=== PATIENT | female | born 1995 | race Caucasian/White ===

== ENCOUNTER 2024-08-04 08:39 | Outpatient (REF) | payer OTHER, SELFPAY ==
--- NOTE | ~2024-08-04 | US_ITS ---
EXAMINATION: US THYROID CLINICAL INFORMATION: Goiter, prior study at outside facility approximately 7 years ago is not available. COMPARISON: None available. TECHNIQUE: Linear transducer grayscale and color Doppler examination with attention to the region of the thyroid. FINDINGS: SIZE: Measurements of the thyroid lobes and nodules are given in sagittal, anteroposterior and transverse dimensions respectively. Right Thyroid Lobe: 4.2 x 2.1 x 2.1 cm, volume 10.0 mL. Parenchyma: The gland echotexture is heterogeneous. Thyroid vascularity is normal. Left Thyroid Lobe: 5.0 x 2.1 x 2.2 cm, volume 11.1 mL. Parenchyma: The gland echotexture is heterogeneous. Thyroid vascularity is normal. Isthmus: 0.8 cm in maximum AP dimension. Estimated total number of nodules greater than or equal to 1 cm: 1. Transportation Superintendent nodules are described as follows: 1. Location: Right upper. Size: 0.9 x 0.9 x 0.9 cm, volume 0.5 mL. Nodule characteristics: Composition: Solid (2). Echogenicity: Hyperechoic (1). Shape: Not taller than wide (0). Margins: Smooth (0). Echogenic Foci: None (0). ACR TI-RADS total points: 3. ACR TI-RADS category: 3. 2. Location: Left upper. Size: 1.1 x 1.0 x 1.1 cm, volume 0.6 mL. Nodule characteristics: Composition: Solid (2). Echogenicity: Hypoechoic (2). Shape: Not taller than wide (0). Margins: Smooth (0). Echogenic Foci: None (0). ACR TI-RADS total points: 4. ACR TI-RADS category: 4. NODES: No lymphadenopathy is seen in the tissue surrounding the thyroid gland. US/US thyroid IMPRESSION: 1. Diffusely heterogeneous thyroid gland. 2. Bilateral thyroid nodules, largest left 1.1 cm. Fine-needle aspiration recommended if more than or equal to 1.5 cm in maximum dimension. This study was presented today 08/04/2024 for interpretation. Stat results provided at this time as requested by referring provider. ACR TI-RADS RECOMMENDATION REFERENCE: Ultrasound-guided fine-needle aspiration, followup ultrasound, no further follow up. * TR1 (0 point) and TR2 (2 points): No FNA or follow up. * TR3 (3 points): FNA if more than or equal to 2.5 cm in maximum dimension, followup ultrasound in 1, 3 and 5 years if 1.5 to 2.4 cm in maximum dimension. * TR4 (4-6 points): FNA if more than or equal to 1.5 cm in maximum dimension, followup ultrasound in 1, 2, 3 and 5 years if 1 to 1.4 cm in maximum dimension. * TR5 (more than or equal to 7 points): FNA if more than or equal to 1 cm in maximum dimension, followup ultrasound every year for 5 years if 0.5 to 0.9 cm in maximum dimension. * TR3, TR4 or TR5 nodules that are below the size threshold for followup receive no follow up. Electronically signed by: Janet Cantor MD 08/04/2024 12:28 PM [facility]
== END 2024-08-04 08:40 | disposition home or self-care (01) ==
LOC: HO.UMASIMG 08:39
PROVIDERS: Visit Provider Family Medicine
DX: E04.2 Nontoxic multinodular goiter (principal); E03.9 Hypothyroidism, unspecified
CPT/HCPCS: 76536

== ENCOUNTER 2025-07-15 06:28 | Outpatient (REF) | payer OTHER, SELFPAY ==
--- NOTE | ~2025-07-15 | US_ITS ---
EXAMINATION: US THYROID HISTORY: NONTOXIC MULTINODULAR GOITER TECHNIQUE: Real-time grayscale ultrasound imaging was performed and images were reviewed. COMPARISON: Comparison is made with the prior examination dated 08/04/2024. FINDINGS: SIZE: The right thyroid lobe measures 4.6 x 1.8 x 2.0 cm. The left thyroid lobe measures 4.3 x 1.9 x 1.8 cm. The isthmus measures 8 mm. FLOW: Flow to the gland is normal. ECHOGENICITY: The echotexture of the gland is heterogeneous. NODULES: The previously seen left sided nodule is not identified on today's examination. Again seen is a right-sided nodule as described below: Nodule #: 1 Location: Right mid to upper pole measuring 11 x 10 x 10 mm (previously 9 x 9 x 9 mm). Shape: Wider than tall (0 points) Margins: Smooth (0 points) Echotexture: Hyperechoic (1 point) Composition: Solid (2 points) Calcifications: None (0 points) Total points: 3 TIRADS: TR3: Mildly suspicious. US/US thyroid IMPRESSION: Stable right-sided nodule as described above. According to ACR TI-RADS guidelines below, no follow-up or biopsy is warranted. ACR TI-RADS Guidelines TR1 (0 points): Benign. No follow-up or biopsy required TR2 (2 points): Not Suspicious. No biopsy or follow up indicated TR3 (3 points): Mildly Suspicious. FNA if >= 2.5 cm, Follow if >= 1.5 cm TR4 (4-6 points): Moderately Suspicious. FNA if >= 1.5 cm, Follow if >= 1.0 cm TR5 (>=7 points): Highly Suspicious. FNA if >= 1.0 cm, Follow if >= 0.5 cm Electronically signed by: Juaquin Benz MD 07/15/2025 02:31 PM EDT
== END 2025-07-15 06:29 | disposition home or self-care (01) ==
LOC: HO.UMASIMG 06:28
PROVIDERS: Visit Provider Family Medicine
DX: E04.2 Nontoxic multinodular goiter (principal)
CPT/HCPCS: 76536

== ENCOUNTER → 2025-07-15 14:03 | Outpatient (BNV) | payer OTHER, SELFPAY | PROVIDERS: Visit Provider Radiology Diagnostic Radiology | DX: E04.2 Nontoxic multinodular goiter (principal) | CPT/HCPCS: 76536 ==